=== PATIENT | female | born 1960 | race Caucasian/White ===

== ENCOUNTER 2021-11-30 17:34 | Emergency (ER) | payer OTHER ==
[2021-11-30] MEDS ORDERED: MEDROL 4MG DOSEP4 MG PO (22:10)
== END 2021-11-30 22:27 | disposition home or self-care (01) ==
LOC: FER 17:34
DX: T14.8XXA Other injury of unspecified body region, initial encounter (principal); J44.9 Chronic obstructive pulmonary disease, unspecified; M25.551 Pain in right hip; R51.9 Headache, unspecified; V49.60XA Unspecified car occupant injured in collision with unspecified motor vehicles in traffic accident, initial encounter; Y92.410 Unspecified street and highway as the place of occurrence of the external cause
CPT/HCPCS: 70450; 71045; 72125; 73100; 73502